=== PATIENT | male | born 1990 | race African-American/Black ===

== ENCOUNTER 2017-12-10 | Emergency (ER) | payer SELFPAY ==
[~2017-12-10] VITALS: Ht 170.2 cm; Wt 59.0 kg
[2017-12-10] MEDS ORDERED: ACETAMINOPHEN 325MG TABLET PO ONE (01:45)
[2017-12-10 02:41] VITALS: BP 128/54
== END 2017-12-10 02:42 | disposition home or self-care (01) ==
LOC: ER
DX: H66.91 Otitis media, unspecified, right ear (principal); F12.10 Cannabis abuse, uncomplicated; F17.200 Nicotine dependence, unspecified, uncomplicated; Z98.1 Arthrodesis status
CPT/HCPCS: 99282

== ENCOUNTER 2017-12-23 22:04 | Emergency (ER) | payer MEDICAID ==
[~2017-12-23] VITALS: Ht 170.2 cm; Wt 59.0 kg
[2017-12-24] MEDS ORDERED: OXYCODONE HCL/ACETAMINOPHEN 5/325MG TABLET PO ONE (01:15)
[2017-12-24 03:00] VITALS: BP 105/68
== END 2017-12-24 04:03 | disposition home or self-care (01) ==
LOC: ER 22:04
DX: G89.29 Other chronic pain (principal); M54.5 Low back pain; M41.9 Scoliosis, unspecified; F12.10 Cannabis abuse, uncomplicated; F17.200 Nicotine dependence, unspecified, uncomplicated; Z98.1 Arthrodesis status
CPT/HCPCS: 99283

== ENCOUNTER 2018-09-23 19:26 | Emergency (ER) | payer MEDICAID ==
[~2018-09-23] VITALS: Ht 170.2 cm; Wt 63.0 kg
[2018-09-23 19:32] VITALS: BP 100/70
[2018-09-23] MEDS ORDERED: KETOROLAC 60MG/2ML VIAL IM ONE (22:15)
[2018-09-23] MEDS ORDERED: HYDROCODONE/ACETAMINOPHEN 5/325MG TABLET PO ONE (22:15)
== END 2018-09-23 23:05 | disposition home or self-care (01) ==
LOC: ER 19:26
DX: G89.29 Other chronic pain (principal); M79.10 Myalgia, unspecified site; Q85.00 Neurofibromatosis, unspecified; F12.10 Cannabis abuse, uncomplicated
CPT/HCPCS: 96372; 99283; J1885; Z7610

== ENCOUNTER 2021-01-12 18:13 | Emergency (ER) | payer MEDICAID, OTHER ==
[~2021-01-12] VITALS: Ht 172.7 cm; Wt 66.0 kg
[2021-01-12] MEDS ORDERED: MORPHINE SULFATE 4 MG/ML CPJ (NOT FOR IM USE) IV STA (18:54)
[2021-01-12] MEDS ORDERED: ONDANSETRON HCL 4MG/2ML INJ IV STA (18:54)
[2021-01-12 19:25] LABS: BASOPHILS % 0.4 % (0.0-2.0); EOSINOPHILS % 0.3 % (0.0-5.0); HEMATOCRIT. 39.2 % (42.0-52.0); HEMOGLOBIN. 13.4 g/dL (14.0-18.0); LYMPHOCYTES % 19.2 % (20.0-50.0); MEAN CORPUSCULAR HEMOGLOBIN 31.5 pg (28.0-32.0); MEAN CORPUSCULAR VOLUME 92.4 fL (80.0-94.0); MEAN PLATELET VOLUME 6.5 fl (7.4-10.4); MONOCYTES % 11.4 % (2.0-8.0); NEUTROPHILS % 68.7 % (40.0-76.0); PLATELET 175 x1000/uL (130-400); RED BLOOD CELL COUNT 4.25 mill/uL (4.7-6.1); RED CELL DISTRIBUTION WIDTH 15.1 % (11.6-14.6)
[2021-01-12 19:31] LABS: CHLORIDE 108 mEq/L (98-107)
[2021-01-12] MEDS ORDERED: HYDROMORPHONE HCL/PF 2MG/ML CPJ IV NR (22:30)
[2021-01-13] MEDS ORDERED: HYDR-4001 MT (00:59)
[2021-01-13] MEDS ORDERED: HYDROCODONE/ACETAMINOPHEN 5/325MG TABLET PO SCH (01:00)
[2021-01-13 02:07] VITALS: BP 103/68
== END 2021-01-13 02:07 | disposition home or self-care (01) ==
LOC: ER 18:13
DX: G89.29 Other chronic pain (principal); Q85.00 Neurofibromatosis, unspecified; M41.9 Scoliosis, unspecified; F12.10 Cannabis abuse, uncomplicated; F17.210 Nicotine dependence, cigarettes, uncomplicated; Z98.890 Other specified postprocedural states; Z98.2 Presence of cerebrospinal fluid drainage device
CPT/HCPCS: 36415; 71260; 74177; 80053; 83690; 85025; 93005; 96374; 96375; 99285; J1170; J2270; J2405

== ENCOUNTER 2021-04-15 07:02 | Emergency (ER) | payer MEDICAID, OTHER ==
[~2021-04-15] VITALS: Ht 177.8 cm; Wt 67.0 kg
[~2021-04-15 07:02] MED LIST: HYDR-4001 MT
[2021-04-15] MEDS ORDERED: IBUPROFEN 600MG TABLET PO STA (07:14)
[2021-04-15 07:52] LABS: BASOPHILS % 0.5 % (0.0-2.0); HEMATOCRIT. 38.1 % (42.0-52.0); HEMOGLOBIN. 12.9 g/dL (14.0-18.0); LYMPHOCYTES % 24.2 % (20.0-50.0); MEAN CORPUSCULAR HEMOGLOBIN 30.4 pg (28.0-32.0); MEAN CORPUSCULAR VOLUME 89.9 fL (80.0-94.0); MEAN PLATELET VOLUME 8.4 fl (7.4-10.4); MONOCYTES % 10.1 % (2.0-8.0); NEUTROPHILS % 64.2 % (40.0-76.0); PLATELET 189 x1000/uL (130-400); RED BLOOD CELL COUNT 4.24 mill/uL (4.7-6.1); RED CELL DISTRIBUTION WIDTH 13.1 % (11.6-14.6)
[2021-04-15 08:00] LABS: CHLORIDE 111 mEq/L (98-107)
[2021-04-15] MEDS ORDERED: T3 PO (09:12)
[2021-04-15] MEDS ORDERED: ACETAMINOPHEN 325MG TABLET PO ONE (09:45)
[2021-04-15] MEDS ORDERED: KETOROLAC 60MG/2ML VIAL IM ONE (10:00)
[2021-04-15 10:04] VITALS: BP 112/63
== END 2021-04-15 11:12 | disposition home or self-care (01) ==
LOC: ER 07:02
DX: M79.18 Myalgia, other site (principal); F12.10 Cannabis abuse, uncomplicated
CPT/HCPCS: 36415; 80053; 85025; 96372; 99283; J1885

== ENCOUNTER 2021-06-13 01:25 | Emergency (ER) | payer MEDICAID, OTHER ==
[~2021-06-13] VITALS: Ht 172.7 cm; Wt 61.0 kg
[~2021-06-13 01:25] MED LIST changes: +T3 PO
[2021-06-13] MEDS ORDERED: OXYCODONE HCL 10MG TABLET SR 12HR PO ONE (02:30)
[2021-06-13] MEDS ORDERED: METHOCARBAMOL 500MG TABLET PO ONE (05:00)
[2021-06-13] MEDS ORDERED: OXYC-93 MT (05:56)
[2021-06-13 07:40] VITALS: BP 110/62
== END 2021-06-13 07:40 | disposition home or self-care (01) ==
LOC: ER 01:25
DX: Q85.01 Neurofibromatosis, type 1 (principal)
CPT/HCPCS: 99283

== ENCOUNTER 2021-06-25 15:53 | Emergency (ER) | payer OTHER ==
[~2021-06-25] VITALS: Ht 170.2 cm; Wt 63.0 kg
[~2021-06-25 15:53] MED LIST changes: +OXYC-93 MT
[2021-06-25] MEDS ORDERED: CYCLOBENZAPRINE 10MG TABLET PO ONE (17:45)
[2021-06-25] MEDS ORDERED: LIDOCAINE 5% PATCH TOP SCH (17:45)
[2021-06-25] MEDS ORDERED: KETOROLAC 15MG/ML VIAL IM ONE (17:45)
[2021-06-25 20:20] VITALS: BP 112/60
[2021-06-25] MEDS ORDERED: CYCLOBENZAPRINE 10MG TABLET PO SCH (20:20)
[2021-06-25] MEDS ORDERED: KETOROLAC 15MG/ML VIAL IM SCH (20:20)
== END 2021-06-25 21:55 | disposition home or self-care (01) ==
LOC: ER 15:53
DX: M79.662 Pain in left lower leg (principal); M79.661 Pain in right lower leg; D36.10 Benign neoplasm of peripheral nerves and autonomic nervous system, unspecified; M41.9 Scoliosis, unspecified; N40.0 Benign prostatic hyperplasia without lower urinary tract symptoms; F12.10 Cannabis abuse, uncomplicated; Z98.890 Other specified postprocedural states
CPT/HCPCS: 96372; 99283; J1885

== ENCOUNTER 2021-11-24 18:10 | Emergency (ER) | payer OTHER ==
[~2021-11-24] VITALS: Ht 172.7 cm; Wt 70.0 kg
[2021-11-24] MEDS ORDERED: OXYCODONE HCL 10MG TABLET SR 12HR PO ONE (21:15)
[2021-11-24 21:36] LABS: BASOPHILS % 0.7 % (0.0-2.0); EOSINOPHILS % 1.1 % (0.0-5.0); HEMATOCRIT. 40.5 % (42.0-52.0); HEMOGLOBIN. 13.6 g/dL (14.0-18.0); LYMPHOCYTES % 26.6 % (20.0-50.0); MEAN CORPUSCULAR HEMOGLOBIN 30.4 pg (28.0-32.0); MEAN CORPUSCULAR VOLUME 90.5 fL (80.0-94.0); MEAN PLATELET VOLUME 8.4 fl (7.4-10.4); MONOCYTES % 7.4 % (2.0-8.0); NEUTROPHILS % 64.2 % (40.0-76.0); PLATELET 169 x1000/uL (130-400); RED BLOOD CELL COUNT 4.48 mill/uL (4.7-6.1); RED CELL DISTRIBUTION WIDTH 13.4 % (11.6-14.6)
[2021-11-24 21:40] LABS: CHLORIDE 106 mEq/L (98-107)
[2021-11-25 02:26] LABS: CLARITY URINE CLEAR (CLEAR); COLOR URINE YELLOW (YELLOW); KETONES URINE TRACE (NEGATIVE); LEUKOCYTE ESTERASE URINE NEGATIVE (NEGATIVE); NITRITE URINE NEGATIVE (NEGATIVE); OCCULT BLOOD URINE NEGATIVE (NEGATIVE); PROTEIN URINE TRACE (NEGATIVE); SPECIFIC GRAVITY URINE 1.028 (1.005-1.030)
[2021-11-25] MEDS ORDERED: MORPHINE SULFATE 4 MG/ML CPJ (NOT FOR IM USE) IV NR (03:30)
[2021-11-25] MEDS ORDERED: ONDANSETRON HCL 4MG/2ML INJ IV NR (03:30)
[2021-11-25] MEDS ORDERED: MORPHINE SULFATE 4 MG/ML CPJ (NOT FOR IM USE) IV STA (08:41)
[2021-11-25] MEDS ORDERED: ONDANSETRON HCL 4MG/2ML INJ IV STA (08:41)
[2021-11-25 12:34] VITALS: BP 113/65
[2021-11-25] MEDS ORDERED: OXYC10TA48 MT (14:04)
[2021-11-25] MEDS ORDERED: TAMS-11 MT (14:06)
== END 2021-11-25 15:00 | disposition home or self-care (01) ==
LOC: ER 18:10
DX: R53.1 Weakness (principal); M54.9 Dorsalgia, unspecified; R33.9 Retention of urine, unspecified; F12.10 Cannabis abuse, uncomplicated
CPT/HCPCS: 36415; 72148; 74176; 80053; 81003; 85025; 96361; 96374; 96375; 99285; J2270; J2405; Z7610

== ENCOUNTER 2021-11-28 04:15 | Emergency (ER) | payer OTHER ==
[~2021-11-28] VITALS: Ht 175.3 cm; Wt 77.0 kg
[~2021-11-28 04:15] MED LIST changes: +OXYC10TA48 MT; +TAMS-11 MT
[2021-11-28] MEDS ORDERED: MORPHINE SULFATE 4 MG/ML CPJ (NOT FOR IM USE) IV STA (05:15)
[2021-11-28] MEDS ORDERED: KETOROLAC 30MG/ML VIAL IV ONE (05:30)
[2021-11-28 06:25] LABS: BASOPHILS % 0.4 % (0.0-2.0); EOSINOPHILS % 0.7 % (0.0-5.0); HEMATOCRIT. 37.5 % (42.0-52.0); HEMOGLOBIN. 13.1 g/dL (14.0-18.0); LYMPHOCYTES % 20.4 % (20.0-50.0); MEAN CORPUSCULAR HEMOGLOBIN 31.1 pg (28.0-32.0); MEAN CORPUSCULAR VOLUME 89.3 fL (80.0-94.0); MEAN PLATELET VOLUME 8.6 fl (7.4-10.4); MONOCYTES % 8.8 % (2.0-8.0); NEUTROPHILS % 69.7 % (40.0-76.0); PLATELET 172 x1000/uL (130-400); RED CELL DISTRIBUTION WIDTH 13.2 % (11.6-14.6)
[2021-11-28 06:37] LABS: CHLORIDE 109 mEq/L (98-107)
[2021-11-28] MEDS ORDERED: MORPHINE SULFATE 4 MG/ML CPJ (NOT FOR IM USE) IV ONE (07:45)
[2021-11-28 08:10] VITALS: BP 122/84
== END 2021-11-28 11:13 | disposition short-term general hospital (02) ==
LOC: ER 04:26 → CANBEDREQ 11:08 → ER 11:13
DX: M54.50 Low back pain, unspecified (principal); Q85.00 Neurofibromatosis, unspecified; G40.909 Epilepsy, unspecified, not intractable, without status epilepticus; F12.10 Cannabis abuse, uncomplicated
CPT/HCPCS: 36415; 80053; 85025; 87426; 96374; 96375; 96376; 99284; C9803; J1885; J2270; Z7610

== ENCOUNTER 2022-02-20 13:21 | Emergency (ER) | payer MEDICAID, OTHER ==
[~2022-02-20] VITALS: Ht 175.3 cm; Wt 66.0 kg
[2022-02-20] MEDS ORDERED: methocarbamol (13:40)
[2022-02-20] MEDS ORDERED: norco (13:40)
[2022-02-20] MEDS ORDERED: KETOROLAC 60MG/2ML VIAL IM ONE (16:00)
[2022-02-20] MEDS ORDERED: HYDROCODONE/ACETAMINOPHEN 7.5/325MG TABLET PO ONE (16:00)
[2022-02-20 18:01] VITALS: BP 134/81
== END 2022-02-20 18:04 | disposition home or self-care (01) ==
LOC: ER 13:21
DX: S00.83XA Contusion of other part of head, initial encounter (principal); Q85.00 Neurofibromatosis, unspecified; R10.11 Right upper quadrant pain; G89.29 Other chronic pain; M54.59 Other low back pain; W01.198A Fall on same level from slipping, tripping and stumbling with subsequent striking against other object, initial encounter; Y93.01 Activity, walking, marching and hiking; Y92.480 Sidewalk as the place of occurrence of the external cause; G40.909 Epilepsy, unspecified, not intractable, without status epilepticus; Z96.89 Presence of other specified functional implants; Z98.890 Other specified postprocedural states
CPT/HCPCS: 70450; 74176; 96372; 99284; J1885; Z7610

== ENCOUNTER 2022-02-28 16:00 | Emergency (ER) | payer OTHER ==
[~2022-02-28] VITALS: Ht 172.7 cm; Wt 61.0 kg
[~2022-02-28 16:00] MED LIST changes: +methocarbamol; +norco
[2022-02-28] MEDS ORDERED: SODIUM CHLORIDE 0.9% 1,000 ML IV ONE (17:00)
[2022-02-28 17:15] LABS: BASOPHILS % 0.6 % (0.0-2.0); EOSINOPHILS % 1.2 % (0.0-5.0); HEMATOCRIT. 36.7 % (42.0-52.0); HEMOGLOBIN. 12.6 g/dL (14.0-18.0); LYMPHOCYTES % 22.5 % (20.0-50.0); MEAN CORPUSCULAR HEMOGLOBIN 30.8 pg (28.0-32.0); MEAN CORPUSCULAR VOLUME 89.4 fL (80.0-94.0); MEAN PLATELET VOLUME 8.4 fl (7.4-10.4); NEUTROPHILS % 67.7 % (40.0-76.0); PLATELET 151 x1000/uL (130-400); RED CELL DISTRIBUTION WIDTH 12.9 % (11.6-14.6)
[2022-02-28 17:17] LABS: CHLORIDE 107 mEq/L (98-107)
[2022-02-28 18:02] LABS: CLARITY URINE CLEAR (CLEAR); COLOR URINE YELLOW (YELLOW); KETONES URINE NEGATIVE (NEGATIVE); LEUKOCYTE ESTERASE URINE NEGATIVE (NEGATIVE); NITRITE URINE NEGATIVE (NEGATIVE); OCCULT BLOOD URINE NEGATIVE (NEGATIVE); PH URINE 7.5 (4.5-8.0); PROTEIN URINE NEGATIVE (NEGATIVE); SPECIFIC GRAVITY URINE 1.022 (1.005-1.030)
[2022-02-28] MEDS ORDERED: HYDROCODONE/ACETAMINOPHEN 5/325MG TABLET PO ONE (19:15)
[2022-02-28] MEDS ORDERED: KETOROLAC 60MG/2ML VIAL IM ONE (19:15)
[2022-02-28 20:30] VITALS: BP 125/85
== END 2022-02-28 20:50 | disposition home or self-care (01) ==
LOC: ER 16:00
DX: R53.1 Weakness (principal); R51.9 Headache, unspecified; Z98.890 Other specified postprocedural states; Z86.59 Personal history of other mental and behavioral disorders
CPT/HCPCS: 36415; 70450; 80053; 81003; 84484; 85025; 93005; 96360; 96372; 99285; J1885; J7030

== ENCOUNTER 2024-08-13 20:58 | Inpatient (IN) | payer MEDICAID ==
[~2024-08-13] VITALS: Ht 172.7 cm; Wt 63.6 kg
[~2024-08-13 20:58] MED LIST changes: +DICL100G58 TP; +GABA-290 PO; -HYDR-4001 MT; +HYDR50TA54 PO; +METH-774 PO; -OXYC-93 MT; -OXYC10TA48 MT; +OXYC1TAB12 PO; +SENN-297 PO; -T3 PO; -TAMS-11 MT; -methocarbamol; -norco
[2024-08-13] MEDS ORDERED: HYDROMORPHONE HCL/PF 2MG/ML INJ IV ONE (21:45)
[2024-08-13] MEDS: SODIUM CHLORIDE 0.9% (SEPSIS BOLUS) IV ONE (21:54)
[2024-08-13 22:00] LABS: BASOPHILS % 0.4 % (0.0-2.0); EOSINOPHILS % 0.3 % (0.0-5.0); HEMATOCRIT. 37.1 % (42.0-52.0); HEMOGLOBIN. 12.5 g/dL (14.0-18.0); LYMPHOCYTES % 7.1 % (20.0-50.0); MEAN CORPUSCULAR HEMOGLOBIN 30.7 pg (28.0-32.0); MEAN CORPUSCULAR HGB CONC 33.7 g/dL (31.0-37.0); MEAN CORPUSCULAR VOLUME 91.3 fL (80.0-94.0); MEAN PLATELET VOLUME 8.3 fl (7.4-10.4); MONOCYTES % 8.6 % (2.0-8.0); NEUTROPHILS % 83.6 % (40.0-76.0); PLATELET 196 x1000/uL (130-400); RED BLOOD CELL COUNT 4.06 mill/uL (4.7-6.1); RED CELL DISTRIBUTION WIDTH 12.8 % (11.6-14.6); WHITE BLOOD COUNT 9.9 x1000/uL (4.5-11.0)
[2024-08-13] MEDS: CEFTRIAXONE 1GM/50ML 50 ML IV ONE (22:03)
[2024-08-13 22:09] LABS: CHLORIDE 104 mEq/L (98-107); POTASSIUM 3.9 mEq/L (3.5-5.1); SODIUM 140 mEq/L (136-145)
[2024-08-13 22:10] LABS: CALCIUM 9.4 mg/dL (8.7-10.4); CARBON DIOXIDE 30 mEq/L (21-32); INR 1.1; PROTHROMBIN TIME 12.1 sec (9.6-11.0)
[2024-08-13 22:15] LABS: CREATININE 0.7 mg/dL (0.6-1.3); GLUCOSE 105 mg/dL (70-105); UREA NITROGEN BLOOD 12 mg/dL (9-23)
[2024-08-13 22:17] LABS: ALANINE AMINOTRANSFERASE 38 IU/L (10-49); ALBUMIN 4.1 g/dL (3.2-4.8); ASPARTATE AMINOTRANSFERASE 25 IU/L (<34); BILIRUBIN DIRECT 0.1 mg/dL (<=3.0); BILIRUBIN TOTAL 0.4 mg/dL (0.1-1.0); CREATINE KINASE 129 IU/L (46-171); PROTEIN TOTAL 6.3 g/dL (6.0-8.3)
[2024-08-13 22:31] LABS: TROPONIN I HIGH SENSITIVITY < 4 ng/L (3.0-53)
[2024-08-13] MEDS: ONDANSETRON HCL 4MG/2ML INJ IV STA (23:51)
[2024-08-13] MEDS: ONDANSETRON HCL 4MG/2ML INJ IV NR (23:52)
[2024-08-13] MEDS: HYDROMORPHONE HCL/PF 1MG/ML INJ IV ONE (23:55)
[2024-08-14] VITALS (7 sets, daily range): BP systolic 109–146; BP diastolic 56–90; PULSE 81–100; RESP 18–20; TEMP 35.8–36.7; O2SAT 97–100
[2024-08-14] MEDS ORDERED: ONDANSETRON HCL 4MG/2ML INJ IV PRN
[2024-08-14] MEDS ORDERED: IPRATROPIUM/ALBUTEROL 0.5-3(2.5)MG/3ML NEB HHN PRN
[2024-08-14] MEDS ORDERED: DOCUSATE SODIUM 100MG CAPSULE PO PRN
[2024-08-14] MEDS ORDERED: ACETAMINOPHEN 325MG TABLET PO PRN ×2
[2024-08-14] MEDS ORDERED: GUAIFENESIN 200MG/10ML SUGAR FREE UDC PO PRN
[2024-08-14] MEDS ORDERED: MAGNESIUM/ALUMINUM HYDROXIDE/SIMETHICONE 30ML UDC PO PRN
[2024-08-14] MEDS ORDERED: LACTULOSE 20G/30ML UDC PO PRN (01:30)
[2024-08-14] MEDS ORDERED: METHOCARBAMOL 750MG TABLET PO PRN (01:45)
[2024-08-14] MEDS: DIPHENHYDRAMINE 50MG/ML VIAL IV NR (01:50)
[2024-08-14] MEDS: LACTATED RINGERS 1,000 ML IV SCH (01:52)
[2024-08-14] MEDS: OXYCODONE HCL/ACETAMINOPHEN 5/325MG TABLET PO PRN (05:40)
[2024-08-14] MEDS: GABAPENTIN 300MG CAPSULE PO SCH (05:41)
[2024-08-14] MEDS ORDERED: MEDICATION NOT ON FORMULARY EA (Gabapentin 1 TAB) PO SCH (09:00)
[2024-08-14] MEDS: ENOXAPARIN 40MG/0.4ML SYR SUBCUT SCH (10:49)
[2024-08-14] MEDS: HYDROMORPHONE HCL 2MG TABLET PO PRN (13:18)
[2024-08-14] MEDS: PANTOPRAZOLE SODIUM 40 MG/VIAL IV SCH (13:21)
[2024-08-14] MEDS: OXYCODONE HCL 5MG TABLET PO PRN (16:43)
[2024-08-14 18:27] LABS: BASOPHILS % 0.4 % (0.0-2.0); EOSINOPHILS % 1.4 % (0.0-5.0); HEMATOCRIT. 32.1 % (42.0-52.0); HEMOGLOBIN. 10.8 g/dL (14.0-18.0); LYMPHOCYTES % 19.9 % (20.0-50.0); MEAN CORPUSCULAR HEMOGLOBIN 30.3 pg (28.0-32.0); MEAN CORPUSCULAR HGB CONC 33.6 g/dL (31.0-37.0); MEAN CORPUSCULAR VOLUME 90.2 fL (80.0-94.0); MEAN PLATELET VOLUME 7.9 fl (7.4-10.4); MONOCYTES % 7.5 % (2.0-8.0); NEUTROPHILS % 70.8 % (40.0-76.0); PLATELET 168 x1000/uL (130-400); RED BLOOD CELL COUNT 3.56 mill/uL (4.7-6.1); RED CELL DISTRIBUTION WIDTH 12.6 % (11.6-14.6); WHITE BLOOD COUNT 5.1 x1000/uL (4.5-11.0)
[2024-08-14 18:30] LABS: CHLORIDE 106 mEq/L (98-107); POTASSIUM 3.8 mEq/L (3.5-5.1); SODIUM 140 mEq/L (136-145)
[2024-08-14 18:31] LABS: CALCIUM 8.5 mg/dL (8.7-10.4); CARBON DIOXIDE 28 mEq/L (21-32)
[2024-08-14 18:36] LABS: CREATININE 0.6 mg/dL (0.6-1.3); GLUCOSE 114 mg/dL (70-105); UREA NITROGEN BLOOD 9 mg/dL (9-23)
[2024-08-15] VITALS: BP 150/83; PULSE 86; RESP 19; TEMP 36.1; O2SAT 98
[2024-08-15 04:00] VITALS: BP 131/77; PULSE 82; RESP 20; TEMP 36.4; O2SAT 97
[2024-08-15] MEDS: HYDROXYZINE 25MG TABLET PO PRN (06:00)
[2024-08-15 06:24] LABS: HEMOGLOBIN 11.1 g/dL (14.0-18.0); MEAN CORPUSCULAR HEMOGLOBIN 30.9 pg (28.0-32.0); MEAN CORPUSCULAR HGB CONC 34.5 g/dL (31.0-37.0); MEAN CORPUSCULAR VOLUME 89.5 fL (80.0-94.0); PLATELET 177 x1000/uL (130-400); RED BLOOD CELL COUNT 3.58 mill/uL (4.7-6.1); RED CELL DISTRIBUTION WIDTH 12.3 % (11.6-14.6); WHITE BLOOD COUNT 4.7 x1000/uL (4.5-11.0)
[2024-08-15 06:37] LABS: CARBON DIOXIDE 28 mEq/L (21-32); CHLORIDE 106 mEq/L (98-107); POTASSIUM 4.2 mEq/L (3.5-5.1); SODIUM 141 mEq/L (136-145)
[2024-08-15 06:38] LABS: CALCIUM 8.7 mg/dL (8.7-10.4)
[2024-08-15 06:40] LABS: CREATININE 0.5 mg/dL (0.6-1.3)
[2024-08-15 06:43] LABS: GLUCOSE 77 mg/dL (70-105); UREA NITROGEN BLOOD 10 mg/dL (9-23)
[2024-08-15 08:00] VITALS: BP 121/66; PULSE 91; RESP 13; TEMP 36.2; O2SAT 94
[2024-08-15] MEDS: PANTOPRAZOLE SODIUM 40 MG/VIAL IV SCH (09:46)
[2024-08-15 12:00] VITALS: BP 126/73; PULSE 92; RESP 14; TEMP 35.9; O2SAT 94
[2024-08-15 16:00] VITALS: BP 118/71; RESP 15; TEMP 36.2; O2SAT 98
[2024-08-15 20:00] VITALS: BP 140/85; PULSE 85; RESP 18; TEMP 36.2; O2SAT 98
[2024-08-15] MEDS: MELATONIN 3MG TABLET PO SCH (20:46)
[2024-08-16] VITALS: BP 123/79; PULSE 83; RESP 19; TEMP 35.9; O2SAT 97
[2024-08-16] MEDS: DIPHENHYDRAMINE 50MG/ML VIAL IV NR (02:26)
[2024-08-16 04:00] VITALS: BP 122/81; PULSE 85; RESP 19; TEMP 36.4; O2SAT 97
[2024-08-16 06:53] LABS: CHLORIDE 104 mEq/L (98-107); HEMATOCRIT 33.6 % (42.0-52.0); HEMOGLOBIN 11.5 g/dL (14.0-18.0); MEAN CORPUSCULAR HEMOGLOBIN 30.4 pg (28.0-32.0); MEAN CORPUSCULAR HGB CONC 34.1 g/dL (31.0-37.0); MEAN CORPUSCULAR VOLUME 89.2 fL (80.0-94.0); PLATELET 180 x1000/uL (130-400); RED BLOOD CELL COUNT 3.77 mill/uL (4.7-6.1); RED CELL DISTRIBUTION WIDTH 12.5 % (11.6-14.6); SODIUM 139 mEq/L (136-145); WHITE BLOOD COUNT 5.3 x1000/uL (4.5-11.0)
[2024-08-16 06:54] LABS: CALCIUM 8.6 mg/dL (8.7-10.4); CARBON DIOXIDE 28 mEq/L (21-32)
[2024-08-16 06:59] LABS: CREATININE 0.5 mg/dL (0.6-1.3); GLUCOSE 71 mg/dL (70-105); UREA NITROGEN BLOOD 8 mg/dL (9-23)
[2024-08-16 07:02] LABS: PHOSPHORUS 3.5 mg/dL (2.5-4.9)
[2024-08-16 08:00] VITALS: BP 126/72; PULSE 89; RESP 18; TEMP 36.3
[2024-08-16] MEDS ORDERED: LIDOCAINE HCL/EPINEPHRINE 1%-EPI 1:100,000 20ML VIAL INFIL NR (08:15)
[2024-08-16] MEDS ORDERED: DIPHENHYDRAMINE HCL/ZINC ACET 28 GM CREAM TOP PRN (09:00)
[2024-08-16] MEDS ORDERED: MORPHINE SULFATE 4 MG/ML INJ (FOR IV/IM USE) IV SCH (11:00)
[2024-08-16 12:00] VITALS: BP 123/75; PULSE 70; RESP 18; TEMP 36.1
[2024-08-16] MEDS: MORPHINE SULFATE 4 MG/ML INJ (FOR IV/IM USE) IV SCH (14:05)
[2024-08-16] MEDS: MAGNESIUM 2 G PREMIX 50 ML IV ONE (14:05)
[2024-08-16 20:00] VITALS: BP 121/79; PULSE 95; RESP 20; TEMP 36.4
[2024-08-17 04:00] VITALS: BP 121/79; PULSE 82; RESP 20; TEMP 36.4; O2SAT 99
[2024-08-17 08:00] VITALS: BP 128/81; PULSE 80; RESP 18; TEMP 36.2; O2SAT 93
[2024-08-17 12:00] VITALS: BP 124/82; PULSE 87; RESP 18; TEMP 36.2; O2SAT 100
[2024-08-17 16:00] VITALS: BP 125/88; PULSE 87; RESP 18; TEMP 36.2; O2SAT 100
[2024-08-17] MEDS ORDERED: NALOXONE HCL 0.4MG/ML VIAL IV PRN (17:00)
[2024-08-17 20:00] VITALS: BP 112/66; PULSE 85; RESP 20; TEMP 36.3; O2SAT 100
[2024-08-17] MEDS: CYCLOBENZAPRINE 10MG TABLET PO PRN (21:05)
[2024-08-17] MEDS: DIPHENHYDRAMINE 50MG CAPSULE PO PRN (21:05)
[2024-08-18 04:00] VITALS: BP 135/86; PULSE 82; RESP 20; TEMP 36.3; O2SAT 99
[2024-08-18 08:00] VITALS: BP 115/66; PULSE 78; RESP 17; TEMP 36; O2SAT 97
[2024-08-18 12:00] VITALS: BP 121/79; PULSE 91; RESP 16; TEMP 36.2; O2SAT 97
[2024-08-18 16:00] VITALS: BP 131/69; PULSE 82; RESP 16; TEMP 36.2; O2SAT 100
[2024-08-18 20:00] VITALS: BP 128/74; PULSE 88; RESP 18; TEMP 36.3; O2SAT 99
[2024-08-18] MEDS: NA PHOS,M-B/NA PHOS,DI-BA ENEMA 118ML PR NR (21:00)
[2024-08-18] MEDS: POLYETHYLENE GLYCOL 3350 (17GM) 1 DOSE PACK PO SCH (21:00)
[2024-08-18] MEDS: DIPHENHYDRAMINE 50MG/ML VIAL IV PRN (21:58)
[2024-08-19] VITALS: BP 112/59; PULSE 95; RESP 19; TEMP 37.1; O2SAT 99
[2024-08-19 04:00] VITALS: BP 126/64; PULSE 95; RESP 17; TEMP 36.6; O2SAT 99
[2024-08-19] MEDS ORDERED: BISACODYL 10MG SUPP PR PRN (07:50)
[2024-08-19 08:00] VITALS: BP 95/47; PULSE 87; RESP 16; TEMP 36.5; O2SAT 97
[2024-08-19 08:37] LABS: CLARITY URINE CLEAR (CLEAR); COLOR URINE YELLOW (YELLOW); GLUCOSE URINE NEGATIVE (NEGATIVE); KETONES URINE NEGATIVE (NEGATIVE); LEUKOCYTE ESTERASE URINE NEGATIVE (NEGATIVE); NITRITE URINE NEGATIVE (NEGATIVE); OCCULT BLOOD URINE NEGATIVE (NEGATIVE); PROTEIN URINE NEGATIVE (NEGATIVE); SPECIFIC GRAVITY URINE 1.018 (1.005-1.030); UROBILINOGEN URINE 0.2 E.U./dL (0.2-1.0)
[2024-08-19 12:00] VITALS: BP 148/81; PULSE 107; RESP 16; TEMP 36.7; O2SAT 97
[2024-08-19 16:00] VITALS: BP 144/79; PULSE 66; RESP 18; TEMP 36.6; O2SAT 99
[2024-08-19] MEDS: NICOTINE 14MG PATCH TD SCH (17:00)
[2024-08-19 20:00] VITALS: BP 114/64; PULSE 95; RESP 20; TEMP 36.4; O2SAT 98
[2024-08-19] MEDS: SENNOSIDES/DOCUSATE SOD 8.6/50MG TABLET PO SCH (20:20)
[2024-08-20] VITALS: BP 134/69; PULSE 98; RESP 20; TEMP 36.3; O2SAT 100
[2024-08-20 04:00] VITALS: BP 122/78; PULSE 94; RESP 20; TEMP 36.4; O2SAT 99
[2024-08-20] MEDS: POLYETHYLENE GLYCOL 3350 (17GM) 1 DOSE PACK PO SCH (09:48)
[2024-08-20 12:00] VITALS: BP 131/68; PULSE 90; RESP 18; TEMP 36.9; O2SAT 98
[2024-08-20 16:00] VITALS: BP 113/71; PULSE 114; RESP 18; TEMP 37; O2SAT 98
[2024-08-20] MEDS: NA PHOS,M-B/NA PHOS,DI-BA ENEMA 118ML PR PRN (16:16)
[2024-08-20 20:00] VITALS: BP 125/76; PULSE 109; RESP 20; TEMP 36.2; O2SAT 97
[2024-08-21] VITALS: BP 112/69; PULSE 97; RESP 20; TEMP 36.3; O2SAT 95
[2024-08-21 04:00] VITALS: BP 105/64; PULSE 98; RESP 16; TEMP 37.1; O2SAT 98
[2024-08-21 08:00] VITALS: BP_SYST 117; BP_SYST 118; BP_DIAS 63; BP_DIAS 65; PULSE 80; PULSE 92; RESP 19; RESP 20; TEMP 36.3; TEMP 36.4; O2SAT 99
[2024-08-21 16:00] VITALS: BP 132/70; PULSE 109; RESP 20; TEMP 36.3; O2SAT 98
[2024-08-21 20:00] VITALS: BP_SYST 134; BP_SYST 147; BP_DIAS 81; BP_DIAS 89; PULSE 104; PULSE 74; RESP 19; RESP 20; TEMP 35.5; TEMP 36.1; O2SAT 97; O2SAT 98
[2024-08-22] VITALS: BP 120/75; PULSE 97; RESP 20; O2SAT 97
[2024-08-22 04:00] VITALS: BP 146/67; PULSE 104; RESP 20; TEMP 35.6; O2SAT 100
[2024-08-22 08:00] VITALS: BP 111/69; PULSE 98; RESP 20; TEMP 36.5; O2SAT 100
[2024-08-22 12:00] VITALS: BP 101/70; PULSE 102; RESP 20; TEMP 36.6; O2SAT 99
[2024-08-22 16:00] VITALS: BP 132/91; PULSE 115; RESP 20; TEMP 36.4; O2SAT 99
[2024-08-22] MEDS: HYDROXYZINE 25MG TABLET PO PRN (19:12)
[2024-08-22 20:00] VITALS: BP 139/59; PULSE 96; RESP 19; TEMP 36.2; O2SAT 100
[2024-08-23 01:29] VITALS: BP 136/66; PULSE 94; RESP 20; TEMP 36.6; O2SAT 100
[2024-08-23 04:00] VITALS: BP 151/82; PULSE 103; RESP 19; TEMP 36.2; O2SAT 98
[2024-08-23 08:00] VITALS: BP 113/61; PULSE 105; RESP 18; TEMP 36.1; O2SAT 98
[2024-08-23 12:00] VITALS: BP 106/74; PULSE 118; RESP 18; TEMP 36.8; O2SAT 99
[2024-08-23] MEDS ORDERED: MELA3TAB40 PO (14:13)
[2024-08-23] MEDS ORDERED: OXYC1TAB5 PO ×2 (14:13→14:16)
[2024-08-23] MEDS ORDERED: DICL100G58 TOP ×2 (14:13→14:16)
[2024-08-23] MEDS ORDERED: B50 PO ×2 (14:13→14:16)
[2024-08-23] MEDS ORDERED: POLY17PO43 PO ×2 (14:13→14:16)
[2024-08-23] MEDS ORDERED: CYCL10TA21 PO ×2 (14:13→14:16)
[2024-08-23] MEDS ORDERED: ACET-2708 PO ×2 (14:13→14:16)
[2024-08-23] MEDS ORDERED: HYDR-459 PO ×2 (14:13→14:16)
[2024-08-23] MEDS ORDERED: GABA-290 PO ×2 (14:13→14:16)
[2024-08-23] MEDS ORDERED: SENN-297 PO ×2 (14:13→14:16)
[2024-08-23 15:09] VITALS: BP 105/74; PULSE 118; TEMP 98.1; O2SAT 99
[2024-08-23 16:00] VITALS: BP 118/73; PULSE 69; RESP 18; TEMP 36.9; O2SAT 97
== END 2024-08-23 18:40 | disposition home health service (06) | DRG 951 ==
LOC: ER 20:58 → 6WST 23:23 → EDBEDREQ 23:50 → EDBEDREQTM 23:50 → ENRESERV 08-14 00:14
PROVIDERS: ADMIT Internal Medicine; ATTEND Internal Medicine
PROC: 0KBN0ZZ Excision of Right Hip Muscle, Open Approach (ICD-10-PCS; principal; 2024-08-16)
DX: K52.9 Noninfective gastroenteritis and colitis, unspecified (principal); G82.50 Quadriplegia, unspecified; L89.213 Pressure ulcer of right hip, stage 3; K59.2 Neurogenic bowel, not elsewhere classified; L89.159 Pressure ulcer of sacral region, unspecified stage; E86.0 Dehydration; D64.9 Anemia, unspecified; Q85.00 Neurofibromatosis, unspecified; K56.41 Fecal impaction; K80.20 Calculus of gallbladder without cholecystitis without obstruction; G89.4 Chronic pain syndrome; G40.909 Epilepsy, unspecified, not intractable, without status epilepticus; J43.9 Emphysema, unspecified; M51.16 Intervertebral disc disorders with radiculopathy, lumbar region; Z60.2 Problems related to living alone; M47.26 Other spondylosis with radiculopathy, lumbar region; Z99.3 Dependence on wheelchair; Z98.1 Arthrodesis status; Z91.199 Patient's noncompliance with other medical treatment and regimen due to unspecified reason; Z86.19 Personal history of other infectious and parasitic diseases; Z82.49 Family history of ischemic heart disease and other diseases of the circulatory system; N31.9 Neuromuscular dysfunction of bladder, unspecified
CPT/HCPCS: 36415; 71045; 80048; 80076; 81003; 82550; 83605; 83735; 84100; 84145; 84484; 85025; 85027; 87077; 87186; 93970; 96365; 97162; 97166; 97530; 99291; J0696; J1171; J1200; J1650; J2004; J2270; J2405; J2470; J3475; J7030; J7120; Q0163

== ENCOUNTER 2024-09-05 06:31 | Inpatient (IN) | payer MEDICAID ==
[~2024-09-05] VITALS: Ht 172.7 cm; Wt 59.0 kg
[~2024-09-05 06:31] MED LIST changes: +ACET-2708 PO; +B50 PO; +CYCL10TA21 PO; +DICL100G58 TOP; -DICL100G58 TP; +HYDR-459 PO; -HYDR50TA54 PO; +MELA3TAB40 PO; -METH-774 PO; -OXYC1TAB12 PO; +OXYC1TAB5 PO; +POLY17PO43 PO
[2024-09-05] MEDS ORDERED: METOCLOPRAMIDE HCL 10MG/2ML VIAL IV ONE (07:15)
[2024-09-05] MEDS: ACETAMINOPHEN 325MG TABLET PO ONE (07:15)
[2024-09-05] MEDS ORDERED: LACTATED RINGERS 1,000 ML IV SCH (07:15)
[2024-09-05 07:34] LABS: BASOPHILS % 0.5 % (0.0-2.0); EOSINOPHILS % 0.4 % (0.0-5.0); HEMATOCRIT. 38.3 % (42.0-52.0); HEMOGLOBIN. 12.6 g/dL (14.0-18.0); LYMPHOCYTES % 15.8 % (20.0-50.0); MEAN PLATELET VOLUME 8.1 fl (7.4-10.4); MONOCYTES % 9.5 % (2.0-8.0); NEUTROPHILS % 73.8 % (40.0-76.0); PLATELET 204 x1000/uL (130-400); RED BLOOD CELL COUNT 4.23 mill/uL (4.7-6.1); RED CELL DISTRIBUTION WIDTH 13.2 % (11.6-14.6)
[2024-09-05 07:57] LABS: CREATININE 0.8 mg/dL (0.6-1.3); UREA NITROGEN BLOOD 15 mg/dL (9-23)
[2024-09-05 07:59] LABS: ASPARTATE AMINOTRANSFERASE 16 IU/L (<34); BILIRUBIN DIRECT < 0.1 mg/dL (<=3.0); BILIRUBIN TOTAL 0.3 mg/dL (0.1-1.0); PROTEIN TOTAL 6.3 g/dL (6.0-8.3)
[2024-09-05] MEDS: METOCLOPRAMIDE HCL 10MG/2ML VIAL IV NR (09:29)
[2024-09-05 10:30] VITALS: BP 105/63; PULSE 107; RESP 20; TEMP 36.6
[2024-09-05] MEDS ORDERED: NALOXONE HCL 0.4MG/ML VIAL IV PRN ×2 (11:15→13:15)
[2024-09-05] MEDS ORDERED: ONDANSETRON HCL 4MG/2ML INJ IV PRN (11:15)
[2024-09-05 12:00] VITALS: BP 101/60; PULSE 110; RESP 20; TEMP 36.3; O2SAT 100
[2024-09-05] MEDS: OXYCODONE HCL/ACETAMINOPHEN 5/325MG TABLET PO PRN (12:08)
[2024-09-05] MEDS: GABAPENTIN 300MG CAPSULE PO SCH (14:00)
[2024-09-05] MEDS: OXYCODONE HCL 5MG TABLET PO PRN (14:00)
[2024-09-05 16:00] VITALS: BP 117/69; PULSE 106; RESP 20; TEMP 36.7; O2SAT 100
[2024-09-05 20:00] VITALS: BP 103/67; PULSE 103; RESP 18; TEMP 36.6; O2SAT 100
[2024-09-05] MEDS: DIPHENHYDRAMINE 50MG CAPSULE PO PRN (20:34)
[2024-09-05] MEDS: ENOXAPARIN 40MG/0.4ML SYR SUBCUT SCH (20:34)
[2024-09-05 21:37] LABS: CLARITY URINE CLEAR (CLEAR); COLOR URINE YELLOW (YELLOW); GLUCOSE URINE NEGATIVE (NEGATIVE); KETONES URINE NEGATIVE (NEGATIVE); LEUKOCYTE ESTERASE URINE NEGATIVE (NEGATIVE); NITRITE URINE NEGATIVE (NEGATIVE); OCCULT BLOOD URINE NEGATIVE (NEGATIVE); PH URINE 8.0 (4.5-8.0); PROTEIN URINE NEGATIVE (NEGATIVE); SPECIFIC GRAVITY URINE 1.024 (1.005-1.030); UROBILINOGEN URINE 1 E.U./dL (0.2-1.0)
[2024-09-06] VITALS: BP 117/71; PULSE 100; RESP 19; TEMP 37.1; O2SAT 100
[2024-09-06 12:00] VITALS: BP 121/73; PULSE 104; RESP 18; TEMP 36.6; O2SAT 100
[2024-09-06 15:38] VITALS: BP 119/74; PULSE 104; TEMP 98; O2SAT 100
== END 2024-09-06 17:28 | disposition home health service (06) | DRG 249 ==
LOC: ER 06:31 → 8EST 08:47 → EDBEDREQ 08:49 → EDBEDREQTM 08:49 → ENRESERV 08:58
PROVIDERS: ADMIT Internal Medicine; ATTEND Internal Medicine
DX: K52.9 Noninfective gastroenteritis and colitis, unspecified (principal); F17.200 Nicotine dependence, unspecified, uncomplicated; Z82.49 Family history of ischemic heart disease and other diseases of the circulatory system; Z74.01 Bed confinement status
CPT/HCPCS: 36415; 74176; 80048; 80076; 81003; 85025; 99285; A4606; J1650; J2765; Q0163

== ENCOUNTER 2024-11-05 12:00 | Inpatient (IN) | payer MEDICAID ==
[~2024-11-05] VITALS: Ht 172.7 cm; Wt 62.6 kg
[~2024-11-05 12:00] MED LIST changes: -B50 PO; +DIPH50CA42 PO
[2024-11-05 12:08] VITALS: O2SAT 100
[2024-11-05] MEDS: ACETAMINOPHEN 500MG TABLET PO ONE (12:41)
[2024-11-05 12:56] LABS: BASOPHILS % 0.3 % (0.0-2.0); EOSINOPHILS % 0.5 % (0.0-5.0); HEMATOCRIT. 33.7 % (42.0-52.0); HEMOGLOBIN. 11.2 g/dL (14.0-18.0); LYMPHOCYTES % 12.2 % (20.0-50.0); MEAN PLATELET VOLUME 7.6 fl (7.4-10.4); MONOCYTES % 6.7 % (2.0-8.0); NEUTROPHILS % 80.3 % (40.0-76.0); PLATELET 246 x1000/uL (130-400); RED BLOOD CELL COUNT 3.76 mill/uL (4.7-6.1); RED CELL DISTRIBUTION WIDTH 13.6 % (11.6-14.6)
[2024-11-05 13:08] LABS: TROPONIN I HIGH SENSITIVITY < 4 ng/L (3.0-53)
[2024-11-05 13:09] LABS: UREA NITROGEN BLOOD 10 mg/dL (9-23)
[2024-11-05 13:11] LABS: ASPARTATE AMINOTRANSFERASE 12 IU/L (<34); BILIRUBIN DIRECT 0.1 mg/dL (<=3.0); BILIRUBIN TOTAL 0.5 mg/dL (0.1-1.0); CREATININE 0.5 mg/dL (0.6-1.3); PROTEIN TOTAL 6.4 g/dL (6.0-8.3)
[2024-11-05 13:34] LABS: INFLUENZA TYPE A Presumptive Negative (Pres. Neg.)
[2024-11-05 13:35] LABS: INFLUENZA TYPE B Presumptive Negative (Pres. Neg.)
[2024-11-05 15:29] LABS: TROPONIN I HIGH SENSITIVITY < 4 ng/L (3.0-53)
[2024-11-05 15:47] LABS: BG DEOXYHEMOGLOBIN 51.2 % (0.0-5.0)
[2024-11-05] MEDS: SODIUM CHLORIDE 0.9% 1,000 ML IV ONE (16:06)
[2024-11-05] MEDS ORDERED: GUAIFENESIN 200MG/10ML SUGAR FREE UDC PO PRN (16:30)
[2024-11-05] MEDS ORDERED: IPRATROPIUM/ALBUTEROL 0.5-3(2.5)MG/3ML NEB HHN PRN (16:30)
[2024-11-05] MEDS ORDERED: MAGNESIUM/ALUMINUM HYDROXIDE/SIMETHICONE 30ML UDC PO PRN (16:30)
[2024-11-05] MEDS ORDERED: ONDANSETRON HCL 4MG/2ML INJ IV PRN (16:30)
[2024-11-05] MEDS ORDERED: DOCUSATE SODIUM 100MG CAPSULE PO PRN (16:30)
[2024-11-05] MEDS ORDERED: CLONIDINE 0.1MG TABLET PO PRN (16:30)
[2024-11-05] MEDS ORDERED: ACETAMINOPHEN 325MG TABLET PO PRN ×2 (16:30)
[2024-11-05 17:59] VITALS: BP 94/58; PULSE 95; RESP 18; TEMP 36; O2SAT 100
[2024-11-05 20:00] VITALS: BP_SYST 94; BP_SYST 96; BP_DIAS 57; BP_DIAS 65; PULSE 91; PULSE 95; RESP 16; RESP 18; TEMP 36.0288; TEMP 36.3; O2SAT 100
[2024-11-05] MEDS ORDERED: NALOXONE HCL 0.4MG/ML VIAL IV PRN (21:30)
[2024-11-05] MEDS: HYDROCODONE/ACETAMINOPHEN 10/325MG TABLET PO PRN (23:39)
[2024-11-06] VITALS: BP 107/57; PULSE 97; RESP 18; TEMP 36.6; O2SAT 100
[2024-11-06 04:00] VITALS: BP 115/61; PULSE 97; RESP 18; TEMP 36.6; O2SAT 100
[2024-11-06 06:44] LABS: CLARITY URINE CLEAR (CLEAR); COLOR URINE YELLOW (YELLOW); GLUCOSE URINE NEGATIVE (NEGATIVE); KETONES URINE 4+ (NEGATIVE); LEUKOCYTE ESTERASE URINE NEGATIVE (NEGATIVE); NITRITE URINE NEGATIVE (NEGATIVE); OCCULT BLOOD URINE NEGATIVE (NEGATIVE); PH URINE 6.0 (4.5-8.0); PROTEIN URINE NEGATIVE (NEGATIVE); SPECIFIC GRAVITY URINE 1.030 (1.005-1.030); UROBILINOGEN URINE 0.2 E.U./dL (0.2-1.0)
[2024-11-06 07:42] LABS: *AMPHETAMINES SCREEN URINE NEGATIVE (NEGATIVE); *BARBITURATES SCREEN URINE NEGATIVE (NEGATIVE); *BENZODIAZEPINES SCREEN URINE PRESUMPTIVE POSITIVE (NEGATIVE)
[2024-11-06 07:43] LABS: *COCAINE SCREEN URINE NEGATIVE (NEGATIVE); CANNABINOID URINE SCREEN NEGATIVE (NEGATIVE); ECSTASY MDMA SCREEN URINE NEGATIVE (NEGATIVE); METHADONE URINE SCREEN NEGATIVE (NEGATIVE); OPIATES URINE SCREEN PRESUMPTIVE POSITIVE (NEGATIVE); PHENCYCLIDINE URINE SCREEN NEGATIVE (NEGATIVE)
[2024-11-06 08:00] VITALS: BP 99/64; PULSE 106; RESP 20; TEMP 36.4; O2SAT 99
[2024-11-06 08:00] LABS: BASOPHILS % 0.5 % (0.0-2.0); EOSINOPHILS % 0.4 % (0.0-5.0); HEMATOCRIT. 30.7 % (42.0-52.0); HEMOGLOBIN. 10.6 g/dL (14.0-18.0); LYMPHOCYTES % 16.0 % (20.0-50.0); MEAN PLATELET VOLUME 8.3 fl (7.4-10.4); MONOCYTES % 9.0 % (2.0-8.0); NEUTROPHILS % 74.1 % (40.0-76.0); PLATELET 255 x1000/uL (130-400); RED BLOOD CELL COUNT 3.43 mill/uL (4.7-6.1); RED CELL DISTRIBUTION WIDTH 13.2 % (11.6-14.6)
[2024-11-06 08:08] LABS: CREATININE 0.4 mg/dL (0.6-1.3); TRIGLYCERIDE 121 mg/dL (0-150)
[2024-11-06 08:09] LABS: LDL CHOLESTEROL 79 mg/dL (5-100); UREA NITROGEN BLOOD 11 mg/dL (9-23)
[2024-11-06 08:12] LABS: T4 FREE 0.78 ng/dL (0.89-1.76)
[2024-11-06] MEDS: ENOXAPARIN 40MG/0.4ML SYR SUBCUT SCH (09:25)
[2024-11-06] MEDS: PANTOPRAZOLE SODIUM 40 MG/VIAL IV SCH (11:48)
[2024-11-06 12:00] VITALS: BP 110/60; PULSE 108; RESP 20; TEMP 36.2; O2SAT 99
[2024-11-06 15:01] LABS: RESPIRATORY SYNCYTIAL VIRUS Not Detected (Not Detectd)
[2024-11-06 16:00] VITALS: BP 111/68; PULSE 110; RESP 22; TEMP 35.7; O2SAT 100
[2024-11-06] MEDS ORDERED: ONDANSETRON HCL 4MG/2ML INJ IV PRN (19:00)
[2024-11-06] MEDS: ONDANSETRON HCL 4MG/2ML INJ IV PRN (19:05)
[2024-11-06 20:00] VITALS: BP 107/71; PULSE 95; RESP 19; TEMP 36.4; O2SAT 99
[2024-11-06] MEDS: KETOROLAC 30MG/ML VIAL IV NR (21:28)
[2024-11-07] VITALS: BP_SYST 57; PULSE 94; RESP 19; TEMP 36.5; O2SAT 98
[2024-11-07] MEDS: KETOROLAC 30MG/ML VIAL IV PRN (01:47)
[2024-11-07 04:00] VITALS: BP 96/55; PULSE 94; RESP 20; TEMP 36.4; O2SAT 98
[2024-11-07 08:00] VITALS: BP 96/54; PULSE 77; RESP 17; TEMP 36.4; O2SAT 95
[2024-11-07] MEDS ORDERED: IBUP-1455 MT (10:25)
[2024-11-07] MEDS: OXYCODONE HCL 10MG TABLET PO PRN (11:04)
[2024-11-07 11:46] VITALS: BP 100/60; PULSE 97; RESP 18; TEMP 97.4
[2024-11-07 12:00] VITALS: BP 100/60; PULSE 105; RESP 20; TEMP 36.3; O2SAT 100
[2024-11-07] MEDS ORDERED: ALBU18HF2 IH (12:25)
[2024-11-07 16:00] VITALS: BP 101/55; PULSE 101; RESP 20; TEMP 36.6; O2SAT 97
== END 2024-11-07 18:55 | disposition home or self-care (01) | DRG 384 ==
LOC: ER 12:00 → 7EST 15:35 → EDBEDREQ 16:15 → EDBEDREQTM 16:15 → ENRESERV 17:18 → 7EST 21:06
PROVIDERS: ADMIT Internal Medicine; ATTEND Internal Medicine
DX: S00.83XA Contusion of other part of head, initial encounter (principal); G82.50 Quadriplegia, unspecified; L89.153 Pressure ulcer of sacral region, stage 3; L89.313 Pressure ulcer of right buttock, stage 3; L89.323 Pressure ulcer of left buttock, stage 3; Q85.00 Neurofibromatosis, unspecified; L89.513 Pressure ulcer of right ankle, stage 3; Q24.0 Dextrocardia; K59.2 Neurogenic bowel, not elsewhere classified; L89.523 Pressure ulcer of left ankle, stage 3; L89.613 Pressure ulcer of right heel, stage 3; L89.623 Pressure ulcer of left heel, stage 3; M25.551 Pain in right hip; D64.9 Anemia, unspecified; Z20.822 Contact with and (suspected) exposure to COVID-19; Q05.5 Cervical spina bifida without hydrocephalus; G89.4 Chronic pain syndrome; F12.90 Cannabis use, unspecified, uncomplicated; N31.9 Neuromuscular dysfunction of bladder, unspecified; G40.909 Epilepsy, unspecified, not intractable, without status epilepticus; Z98.2 Presence of cerebrospinal fluid drainage device; Z99.3 Dependence on wheelchair; Z79.899 Other long term (current) drug therapy; Z82.49 Family history of ischemic heart disease and other diseases of the circulatory system; Z74.01 Bed confinement status; W18.39XA Other fall on same level, initial encounter; Y93.89 Activity, other specified; Y92.89 Other specified places as the place of occurrence of the external cause; Y99.8 Other external cause status
CPT/HCPCS: 36415; 71045; 80048; 80061; 80076; 80305; 81003; 82010; 82375; 82803; 82962; 83036; 83735; 83930; 84439; 84443; 84484; 85025; 85651; 87420; 87426; 87804; 97166; 99285; A4606; J1650; J1885; J2405; J2470; J7030